=== PATIENT | female | born 1965 | race Hispanic/Latino ===

== ENCOUNTER 2023-02-11 06:55 | Day surgery (SDC) | payer OTHER ==
[2023-02-09 12:51] LABS: BASOPHILS # (AUTO) 0.09 K/uL (0.00-0.20); BASOPHILS % (AUTO) 0.9 % (0.0-5.0); EOSINOPHILS # (AUTO) 0.18 K/uL (0.00-0.70); EOSINOPHILS % (AUTO) 1.9 % (0.0-8.0); HEMATOCRIT 42.3 % (36-48); IMMATURE GRANULOCYTE ABSOLUTE 0.06 K/uL (0-1); LYMPHOCYTES % (AUTO) 30.7 % (21.0-51.0); MEAN CORPUSCULAR HEMOGLOBIN 28.1 pg (27.0-33.0); MEAN CORPUSCULAR HGB CONC 33.6 g/dL (32.0-36.0); MEAN CORPUSCULAR VOLUME 83.6 fL (79-99); MONOCYTES # (AUTO) 0.8 K/uL (0.1-1.0); MONOCYTES % (AUTO) 8.6 % (3.0-13.0); NEUTROPHILS # (AUTO) 5.5 K/uL (1.8-7.7); NEUTROPHILS % (AUTO) 57.3 % (40.0-77.0); PLATELET COUNT (AUTO) 305 K/uL (130-400); RED BLOOD CELL COUNT(AUTO) 5.06 MIL/uL (4.00-5.50); RED CELL DISTRIBUTION WIDTH 15.1 % (11.0-15.5); WHITE BLOOD COUNT (AUTO) 9.6 K/uL (4.8-10.8)
[2023-02-09 13:01] LABS: CREATININE 0.7 mg/dL (0.5-1.5); POTASSIUM 4.5 mmol/L (3.5-5.1)
[2023-02-09 13:13] VITALS: BP 149/84; PULSE 76; RESP 16
[2023-02-11] VITALS (16 sets, daily range): BP systolic 116–149; BP diastolic 65–92; PULSE 60–83; RESP 10–16
[~2023-02-11] VITALS: Ht 157.5 cm; Wt 84.9 kg
[~2023-02-11 06:55] MED LIST: ESTROGEN TD; PROG100C11 PO
[2023-02-11] MEDS ORDERED: SILVER NITRATE APPLICATOR 1 SWAB TP SCH (07:30)
[2023-02-11] MEDS ORDERED: LACTATED RINGERS 1000ML 1,000 ML IV ONE (07:49)
[2023-02-11] MEDS ORDERED: LIDOCAINE PF 100MG/5ML (2%) SYRINGE 5ML ONE (08:02)
[2023-02-11] MEDS ORDERED: SUCCINYLCHOLINE 200MG/10ML SYR ONE (08:02)
[2023-02-11] MEDS ORDERED: DEXAMETHASONE SOD PHOSPHATE 10MG/ML 1ML VIAL ONE (08:02)
[2023-02-11] MEDS ORDERED: NEOSTIGMINE 5MG/5ML SYR IV ONE (08:03)
[2023-02-11] MEDS ORDERED: ROCURONIUM 10MG/1ML SYR 10 MG/ML ML ONE (08:03)
[2023-02-11] MEDS ORDERED: PROPOFOL 10 MG/ML 20ML VIAL IV ONE (08:03)
[2023-02-11] MEDS ORDERED: MIDAZOLAM HCL 1 MG/ML 2ML VIAL ONE (08:03)
[2023-02-11] MEDS ORDERED: GLYCOPYRROLATE 1 MG/5 ML SYRINGE ONE (08:03)
[2023-02-11] MEDS ORDERED: ONDANSETRON 4MG INJ ONE ×2 (08:03→09:11)
[2023-02-11] MEDS ORDERED: FENTANYL CITRATE PF 50 MCG/1 ML 2ML VIAL ONE ×2 (08:04→09:11)
[2023-02-11] MEDS ORDERED: KETOROLAC 30MG VIAL (30MG/ML) ONE ×2 (08:48→08:49)
== END 2023-02-11 10:25 | disposition home or self-care (01) ==
LOC: DAH 06:55
PROVIDERS: ATTEND Obstetrics & Gynecology
DX: N95.0 Postmenopausal bleeding (principal); R93.89 Abnormal findings on diagnostic imaging of other specified body structures; N84.0 Polyp of corpus uteri; E78.00 Pure hypercholesterolemia, unspecified; Z79.01 Long term (current) use of anticoagulants; Z79.899 Other long term (current) drug therapy; Z98.891 History of uterine scar from previous surgery; Z98.890 Other specified postprocedural states; Z82.49 Family history of ischemic heart disease and other diseases of the circulatory system; Z83.42 Family history of familial hypercholesterolemia
CPT/HCPCS: 80048; 84703; 85025; 36415; 58558; 88305; A6260; A4663; J7030; A4351; A4355; J7120; J3010 ×2; J0330; J3490; J1100; J2710; J2001; J2250; J2704; J2405 ×2; J1885 ×2; A4215; A4223; A4222; A4221